=== PATIENT | female | born 1990 | race American Indian/Alaskan Native ===

== ENCOUNTER 2021-10-26 02:45 | Observation (INO) | payer OTHER ==
[2021-10-26] MEDS: ASPIRIN 325 MG TAB PO ONE ×2 (03:10→07:23)
--- NOTE | 2021-10-26 03:30 | XRay Report ---
CHEST 1 VIEW INDICATION / CLINICAL INFORMATION: CHEST PAIN. COMPARISON: None available. FINDINGS: SUPPORT DEVICES: None. HEART / MEDIASTINUM: No significant abnormality. LUNGS / PLEURA: The lungs are clear. No pneumothorax. BONES: No significant osseous abnormality. ADDITIONAL FINDINGS: No significant additional findings. IMPRESSION: 1. No active cardiopulmonary disease. Signer Name: Cali Ferrara II, MD Signed: 10/26/2021 3:25 AM Workstation Name: [id number]
[2021-10-26 03:53] LABS: Basophils % (Auto) 0.2 % (0.0-1.8); Eosinophils % (Auto) 0.1 % (0.0-4.3); Hematocrit 28.8 % (30.3-42.9); Hemoglobin 8.9 gm/dl (10.1-14.3); Lymphocytes # (Auto) 0.5 K/mm3 (1.2-5.4); Lymphocytes % (Auto) 10.2 % (13.4-35.0); Mean Corpuscular HGB Conc 31 % (30-34); Mean Corpuscular Volume 79 fl (79-97); Monocytes # (Auto) 0.4 K/mm3 (0.0-0.8); Monocytes % (Auto) 8.5 % (0.0-7.3); Platelet Count 236 K/mm3 (140-440); Red Blood Count 3.67 M/mm3 (3.65-5.03); Red Cell Distribution Width 15.8 % (13.2-15.2)
[2021-10-26 04:14] LABS: Alanine Aminotransferase 25 units/L (7-56); Albumin 3.7 g/dL (3.9-5); Blood Urea Nitrogen 7 mg/dL (7-17); Calcium 8.4 mg/dL (8.4-10.2); Hemolysis Index 5
[2021-10-26 04:20] LABS: BUN/Creatinine Ratio 10
[2021-10-26] MEDS: MORPHINE 4 MG/1 ML INJ IV ONE ×2 (04:54→07:23)
--- NOTE | 2021-10-26 05:38 | Cat Scan Report ---
CTA CHEST WITH CONTRAST INDICATION / CLINICAL INFORMATION: Increasing chest pain x 1 day. possible P.E.. TECHNIQUE: Axial CT images were obtained through the chest after injection of 100 cc Omnipaque 350 IV contrast. 3 plane MIP and/or 3D reconstructions were produced. All CT scans at this location are per formed using CT dose reduction for ALARA by means of automated exposure control. COMPARISON: Chest x-ray same date FINDINGS: VASCULAR FINDINGS: PULMONARY ARTERY: Pulmonary artery is normal in size. No filling defects are present compatible with pulmonary artery embolus.. THORACIC AORTA: No significant abnormality. CORONARY ARTERY CALCIFICATION: Absent -- None. NONVASCULAR FINDINGS: LOWER NECK:Soft tissues of the lower neck and thyroid demonstrate no significant abnormalities or acu te findings. HEART: No significant abnormality. MEDIASTINUM / MICAELA: No significant abnormality. ESOPHAGUS: Nonspecific mild circumferential wall thickening of the lower esophagus is demonstrated th at may reflect sequelae of reflux/esophagitis. LYMPH NODES: Borderline right hilar lymph nodes. Borderline to minimally enlarged bilateral axillary lymph nodes. LUNGS: Mild dependent atelectasis of the lower lobes. Lungs otherwise clear. PLEURA: No pleural effusion. No pneumothorax. THORACIC SOFT TISSUES: No significant abnormality of the chest wall or upper thoracic musculature. BONES: No significant skeletal abnormalities. ADDITIONAL CHEST FINDINGS: None. UPPER ABDOMEN: No significant abnormality. IMPRESSION: 1. No CT evidence for pulmonary embolism. 2. No acute findings. Signer Name: Cali Ferrara II, MD Signed: 10/26/2021 5:34 AM Workstation Name: [id number]
[2021-10-26] MEDS ORDERED: KETOROLAC 30 MG/1 ML INJ IV ONE ×2 (06:17)
--- NOTE | 2021-10-26 06:28 | Emergency Department Report ---
ED Chest Pain HPI - General Chief Complaint: Chest Pain Stated Complaint: CHEST PAIN Time Seen by Provider: 10/26/21 04:17 Source: patient Mode of arrival: Ambulatory Limitations: No Limitations - History of Present Illness MD Complaint: chest pain -: Sudden (Awaken her from sleep this morning) Onset: awoke with symptoms Pain Location: substernal Severity scale (0 -10): 7 Quality: sharp Worsens With: inspiration re: denies: nausea, vomting, diaphoresis Other Symptoms: denies: cough, fever Treatments Prior to Arrival: aspirin (The patient was given aspirin on arrival to the emergency department) - Related Data Allergies Allergy/AdvReac Type Severity Reaction Status Date / Time No Known Allergies Allergy Verified 10/26/21 03:04 Heart Score - HEART Score History: Slightly suspicious Risk factors: No known risk factors Troponin: < normal limit ED Review of Systems ROS: Stated complaint: CHEST PAIN Other details as noted in HPI Constitutional: denies: chills, fever Eyes: denies: eye pain, eye discharge, vision change ENT: denies: ear pain, throat pain Respiratory: denies: cough, shortness of breath, wheezing Cardiovascular: chest pain. denies: palpitations, edema Endocrine: no symptoms reported Gastrointestinal: denies: abdominal pain, nausea, diarrhea Genitourinary: denies: urgency, dysuria, discharge Musculoskeletal: denies: back pain, joint swelling, arthralgia Skin: denies: rash, lesions Neurological: denies: headache, weakness, paresthesias Psychiatric: denies: anxiety, depression Hematological/Lymphatic: denies: easy bleeding, easy bruising ED Physical Exam - General Limitations: No Limitations General appearance: alert, in distress (Secondary to the chest pain) - Head Head exam: Present: atraumatic, normocephalic - Eye Eye exam: Present: normal appearance, PERRL, EOMI - ENT ENT exam: Present: mucous membranes moist - Neck Neck exam: Present: normal inspection - Respiratory Respiratory exam: Present: normal lung sounds bilaterally. Absent: respiratory distress - Cardiovascular Cardiovascular Exam: Present: regular rate, normal rhythm. Absent: systolic murmur, diastolic murmur, rubs, gallop - GI/Abdominal GI/Abdominal exam: Present: soft. Absent: distended, tenderness, guarding - Rectal Rectal exam: Present: deferred - Extremities Exam Extremities exam: Present: normal inspection, full ROM. Absent: tenderness - Back Exam Back exam: Present: normal inspection, full ROM. Absent: tenderness - Neurological Exam Neurological exam: Present: alert, oriented X3 - Psychiatric Psychiatric exam: Present: normal affect, normal mood ED Course Vital Signs 10/26/21 02:47 Temperature 99.6 F Pulse Rate 119 H Respiratory 20 Rate Blood Pressure 115/61 O2 Sat by Pulse 98 Oximetry ED Medical Decision Making - Lab Data Result diagrams: 10/26/21 03:38 10/26/21 03:38 Labs reviewed the initial cardiac enzymes were negative. There is evidence of mild anemia - EKG Data -: EKG Interpreted by Nd EKG shows normal: sinus rhythm, axis (Normal), intervals (Normal), QRS complexes (Normal), ST-T waves (Diffuse ST segment elevation) Rate: tachycardia - EKG Data Interpretation: pericarditis (Suspect) - Radiology Data Radiology results: report reviewed, image reviewed I reviewed the chest x-ray and the CT scan of the chest as well as the radiologist interpretation. And there is no evidence of pneumonia on his chest x-ray or PE on the CT scan. - Medical Decision Making The patient's pain appears to be quite severe and not reproducible on palpation of the chest wall. Her EKG showed diffuse ST segment elevation with more consistent with pericarditis. The patient was initially given morphine for pain and then this was followed by Toradol. The current plan is to admit the patient for the slp teacher to evaluate. The hospitalist will be called. Critical care attestation.: If time is entered above; I have spent that time in minutes in the direct care of this critically ill patient, excluding procedure time. ED Disposition Clinical Impression: Chest pain Qualifiers: Chest pain type: other chest pain Qualified Code(s): R07.89 - Other chest pain; R07.8 - Other chest pain Pericarditis Qualifiers: Pericarditis type: unspecified type Condition: Stable Instructions: Nonspecific Chest Pain, Adult
--- NOTE | 2021-10-26 08:31 | History and Physical Report ---
History of Present Illness Date of examination: 10/26/21 Date of admission: 10/26/21 Chief complaint: CP History of present illness: 31-year-old female with no significant past medical history reportedly awakened from sleep this morning complaining of chest pain. Patient denies any prior cardiac history. No associated symptoms of shortness of breath, nausea or vomi ting. No diaphoresis. No fever chills. The patient's pain does not reproducible on palpation. Work-up in the emergency room reveals EKG with diffusely elevated ST-T wave changes. Past History Past Medical History: No medical history Past Surgical History: No surgical history Social history: no significant social history Family history: no significant family history Medications and Allergies Allergies Allergy/AdvReac Type Severity Reaction Status Date / Time No Known Allergies Allergy Verified 10/26/21 03:04 Review of Systems All systems: negative Exam - Constitutional Vitals: Temp Pulse Resp BP Pulse Ox 99.6 F 119 H 20 115/61 98 10/26/21 02:47 10/26/21 02:47 10/26/21 02:47 10/26/21 02:47 10/26/21 02:47 General appearance: Present: no acute distress, well-nourished - EENT Eyes: Present: PERRL ENT: hearing intact, clear oral mucosa - Neck Neck: Present: supple, normal ROM - Respiratory Respiratory effort: normal Respiratory: bilateral: CTA - Cardiovascular Heart Sounds: Present: S1 & S2. Absent: rub, click - Extremities Extremities: pulses symmetrical, No edema Peripheral Pulses: within normal limits - Abdominal General gastrointestinal: Present: soft, non-tender, non-distended, normal bowel sounds Female genitourinary: Present: normal - Integumentary Integumentary: Present: clear, warm, dry - Musculoskeletal Musculoskeletal: gait normal, strength equal bilaterally - Psychiatric Psychiatric: appropriate mood/affect, intact judgment & insight - Neurologic Neurologic: CNII-XII intact, moves all extremities HEART Score - HEART Score Risk factors: No known risk factors Troponin: Troponin T < 0.010 ng/mL (0.00-0.029) 10/26/21 05:25 Troponin: < normal limit Results - Labs CBC & Chem 7: 10/26/21 03:38 10/26/21 03:38 Labs: Laboratory Last Values WBC 5.0 K/mm3 (4.5-11.0) 10/26/21 03:38 RBC 3.67 M/mm3 (3.65-5.03) 10/26/21 03:38 Hgb 8.9 gm/dl (10.1-14.3) L 10/26/21 03:38 Hct 28.8 % (30.3-42.9) L 10/26/21 03:38 MCV 79 fl (79-97) 10/26/21 03:38 MCH 24 pg (28-32) L 10/26/21 03:38 MCHC 31 % (30-34) 10/26/21 03:38 RDW 15.8 % (13.2-15.2) H 10/26/21 03:38 Plt Count 236 K/mm3 (140-440) 10/26/21 03:38 Lymph % (Auto) 10.2 % (13.4-35.0) L 10/26/21 03:38 [place] % (Auto) 8.5 % (0.0-7.3) H 10/26/21 03:38 Eos % (Auto) 0.1 % (0.0-4.3) 10/26/21 03:38 Baso % (Auto) 0.2 % (0.0-1.8) 10/26/21 03:38 Lymph # (Auto) 0.5 K/mm3 (1.2-5.4) L 10/26/21 03:38 [place] # (Auto) 0.4 K/mm3 (0.0-0.8) 10/26/21 03:38 Eos # (Auto) 0.0 K/mm3 (0.0-0.4) 10/26/21 03:38 Baso # (Auto) 0.0 K/mm3 (0.0-0.1) 10/26/21 03:38 Seg Neutrophils % 81.0 % (40.0-70.0) H 10/26/21 03:38 Seg Neutrophils # 4.0 K/mm3 (1.8-7.7) 10/26/21 03:38 D-Dimer 2036.48 ng/mlDDU (0-234) H 10/26/21 05:25 Sodium 133 mmol/L (137-145) L 10/26/21 03:38 Potassium 3.6 mmol/L (3.6-5.0) 10/26/21 03:38 Chloride 99.6 mmol/L (98-107) 10/26/21 03:38 Carbon Dioxide 22 mmol/L (22-30) 10/26/21 03:38 Anion Gap 15 mmol/L 10/26/21 03:38 BUN 7 mg/dL (7-17) 10/26/21 03:38 Creatinine 0.7 mg/dL (0.6-1.2) 10/26/21 03:38 Estimated GFR > 60 ml/min 10/26/21 03:38 BUN/Creatinine Ratio 10 % 10/26/21 03:38 Glucose 91 mg/dL (65-100) 10/26/21 03:38 Calcium 8.4 mg/dL (8.4-10.2) 10/26/21 03:38 Total Bilirubin 0.40 mg/dL (0.1-1.2) 10/26/21 03:38 AST 31 units/L (5-40) 10/26/21 03:38 ALT 25 units/L (7-56) 10/26/21 03:38 Alkaline Phosphatase 49 units/L (35-129) 10/26/21 03:38 Troponin T < 0.010 ng/mL (0.00-0.029) 10/26/21 05:25 Total Protein 7.7 g/dL (6.3-8.2) 10/26/21 03:38 Albumin 3.7 g/dL (3.9-5) L 10/26/21 03:38 Albumin/Globulin Ratio 0.9 % 10/26/21 03:38 Assessment and Plan Assessment and plan: Acute pericarditis. Abnormal EKG 10/26/2021. The patient will be admitted and we will continue to follow cardiac isoenzymes. Patient received Toradol in the emergency department. Consult cardiology. Initiate anti-inflammatory medications. Check echocardiogram
[2021-10-26] MEDS ORDERED: ACETAMINOPHEN 325 MG TAB PO PRN ×2 (08:32→09:00)
[2021-10-26] MEDS ORDERED: traMADol 50 MG TAB PO PRN (09:00)
[2021-10-26] MEDS ORDERED: ONDANSETRON 4 MG/2 ML INJ IV PRN (09:00)
[2021-10-26] MEDS ORDERED: SODIUM CHLORIDE 0.9% 1000 ML 1,000 ML IV SCH (09:00)
[2021-10-26 10:25] LABS: Basophils % (Auto) 0.4 % (0.0-1.8); Hematocrit 30.7 % (30.3-42.9); Hemoglobin 9.6 gm/dl (10.1-14.3); Lymphocytes # (Auto) 0.5 K/mm3 (1.2-5.4); Lymphocytes % (Auto) 7.6 % (13.4-35.0); Mean Corpuscular HGB Conc 31 % (30-34); Mean Corpuscular Volume 79 fl (79-97); Monocytes # (Auto) 0.5 K/mm3 (0.0-0.8); Monocytes % (Auto) 7.8 % (0.0-7.3); Platelet Count 261 K/mm3 (140-440); Red Cell Distribution Width 16.3 % (13.2-15.2)
[2021-10-26] MEDS: MORPHINE 4 MG/1 ML INJ IV PRN ×2 (10:38→15:50)
[2021-10-26 10:45] LABS: Blood Urea Nitrogen 7 mg/dL (7-17); Calcium 8.8 mg/dL (8.4-10.2); Hemolysis Index 21
[2021-10-26 10:50] LABS: BUN/Creatinine Ratio 12
[2021-10-26] MEDS ORDERED: SODIUM CHLORIDE 0.9% 250ML 250 ML IV ONE (12:00)
[2021-10-26] MEDS ORDERED: SODIUM CHLORIDE 0.9% 500 ML 500 ML ONE (12:06)
--- NOTE | 2021-10-26 13:07 | Vascular Lab Report ---
DUPLEX DOPPLER LOWER EXTREMITY VEINS, BILATERAL INDICATION: rule out PE. Shortness of breath, chest pain TECHNIQUE: Duplex doppler imaging was performed through the veins of both lower extremities using ve nous compression and other maneuvers. COMPARISON: No relevant prior imaging study available. FINDINGS: Right Common femoral vein: Negative. Right Superficial femoral vein: Negative. Right Popliteal vein: Negative. Right Calf veins: Negative. Left Common femoral vein: Negative. Left Superficial femoral vein: Negative. Left Popliteal vein: Negative. Left Calf veins: Negative. Additional findings: None. IMPRESSION: No sonographic evidence for DVT in either lower extremity. Signer Name: Kaveh Buck Jr, MD Signed: 10/26/2021 1:03 PM Workstation Name: [id number]
[2021-10-26] MEDS: HYDROcodone/ACETAMINOPHEN 5-325 MG TAB PO PRN ×2 (13:41→21:43)
--- NOTE | 2021-10-26 13:42 | Consultation ---
History of Present Illness Consult date: 10/26/21 Requesting physician: EVGENY LÓPEZ Consult reason: other (Pericarditis) History of present illness: Patient 31-year-old female with no past medical history who came to the ED for complaint of chest pain which started last night. Patient reports sudden onset of a chest tightness associated with palpitations that was worse with deep breathing and when lying flat. She reports the pain is relieved when sitting up or walking around. Furthermore patient also reports some lower extremity edema and lightheadedness. She denies nausea, vomiting, diaphoresis. In the ED EKG showed diffuse ST-T wave changes associated with pericarditis. Of note patient denies any recent vaccinations or sickness. Patient is previously known to our practice. Cardiology is consulted for pericarditis Past History Past Medical History: No medical history Past Surgical History: No surgical history Social history: no significant social history Family history: no significant family history Medications and Allergies Allergies Allergy/AdvReac Type Severity Reaction Status Date / Time No Known Allergies Allergy Verified 10/26/21 03:04 Active Meds: Active Medications Acetaminophen (Acetaminophen 325 Mg Tab) 650 mg PO Q4H PRN PRN Reason: Pain MILD(1-3)/Fever >100.5/RILEY Hydrocodone Bitart/Acetaminophen (Hydrocodone/Acetaminophen 5-325 Mg Tab) 2 each PO Q6H PRN PRN Reason: Pain, Moderate (4-6) Heparin Sodium (Porcine) (Heparin 5,000 Unit/1 Ml Vial) 5,000 unit SUB-Q Q8HR PRAKASH Sodium Chloride (Nacl 0.9% 1000 Ml) 1,000 mls @ 75 mls/hr IV DIRECT PRAKASH Morphine Sulfate (Morphine 4 Mg/1 Ml Inj) 2 mg IV Q4H PRN PRN Reason: Pain , Severe (7-10) Last Admin: 10/26/21 10:38 Dose: 2 mg Ondansetron HCl (Ondansetron 4 Mg/2 Ml Inj) 4 mg IV Q8H PRN PRN Reason: Nausea And Vomiting Last Admin: 10/26/21 10:38 Dose: 4 mg Sodium Chloride (Sodium Chloride 0.9% 10 Ml Flush Syringe) 10 ml IV BID PRAKASH Last Admin: 10/26/21 10:38 Dose: 10 ml Sodium Chloride (Sodium Chloride 0.9% 10 Ml Flush Syringe) 10 ml IV PRN PRN PRN Reason: LINE FLUSH Sodium Chloride (Sodium Chloride 0.9% 10 Ml Flush Syringe) 10 ml IV PRN PRN PRN Reason: LINE FLUSH Tramadol HCl (Tramadol 50 Mg Tab) 50 mg PO Q6H PRN PRN Reason: Pain, Moderate (4-6) Review of Systems Constitutional: no weight loss, no weight gain, no fever, no chills Ears, nose, mouth and throat: no nasal discharge, no sinus pressure, no sinus pain Cardiovascular: chest pain, palpitations, rapid/irregular heart beat, shortness of breath, leg edema Respiratory: shortness of breath, pain on inspiration Gastrointestinal: no abdominal pain, no nausea, no vomiting Musculoskeletal: no neck pain, no shooting arm pain, no arm numbness/tingling Integumentary: no rash, no pruritis, no redness Neurological: no head injury, no transient paralysis Psychiatric: no anxiety, no memory loss Endocrine: no cold intolerance, no heat intolerance Physical Examination Vital Signs Temp Pulse Resp BP Pulse Ox 99.6 F 119 H 20 115/61 98 10/26/21 02:47 10/26/21 02:47 10/26/21 02:47 10/26/21 02:47 10/26/21 02:47 General appearance: no acute distress Cardiac: Positive: Regular Rhythm, Tachycardia Lungs: Positive: Normal Breath Sounds Neuro: Positive: Grossly Intact Abdomen: Positive: Soft, Active Bowel Sounds Skin: Negative: Rash, Suspicious Lesions, Ulceration Extremities: Present: upper extr. pulses, edema Results 10/26/21 09:56 10/26/21 09:56 Cardiac Enzymes 10/26/21 Range/Units 03:38 AST 31 (5-40) units/L CBC 10/26/21 10/26/21 Range/Units 03:38 09:56 WBC 5.0 6.3 (4.5-11.0) K/mm3 RBC 3.67 3.90 (3.65-5.03) M/mm3 Hgb 8.9 L 9.6 L (10.1-14.3) gm/dl Hct 28.8 L 30.7 (30.3-42.9) % Plt Count 236 261 (140-440) K/mm3 Lymph # (Auto) 0.5 L 0.5 L (1.2-5.4) K/mm3 [place] # (Auto) 0.4 0.5 (0.0-0.8) K/mm3 Eos # (Auto) 0.0 0.0 (0.0-0.4) K/mm3 Baso # (Auto) 0.0 0.0 (0.0-0.1) K/mm3 Comprehensive Metabolic Panel 10/26/21 10/26/21 Range/Units 03:38 09:56 Sodium 133 L 134 L (137-145) mmol/L Potassium 3.6 3.8 (3.6-5.0) mmol/L Chloride 99.6 100.0 (98-107) mmol/L Carbon Dioxide 22 21 L (22-30) mmol/L BUN 7 7 (7-17) mg/dL Creatinine 0.7 0.6 (0.6-1.2) mg/dL Glucose 91 82 (65-100) mg/dL Calcium 8.4 8.8 (8.4-10.2) mg/dL AST 31 (5-40) units/L ALT 25 (7-56) units/L Alkaline Phosphatase 49 (35-129) units/L Total Protein 7.7 (6.3-8.2) g/dL Albumin 3.7 L (3.9-5) g/dL - Imaging and Cardiology Echo: pending EKG interpretations - Telemetry EKG Rhythm: Sinus Tachycardia - EKG Sinus rhythms and dysrhythmias: sinus tachycardia Repolarization changes or abnormalities: nonspecific abnormality, ST segment, and/or T wave Assessment and Plan Patient 31-year-old female with no past medical history who came to the ED for complaint of chest pain which started the night prior to admission Pericarditis? Sinus tach Anemia Elevated D-dimer-CT negative for PE/Doppler rule out no DVT Plan: EKG shows sinus tach [address] elevation suggestive of acute pericarditis. Troponins negative x3. Patient currently chest pain-free. AMI ruled out Echo pending Stress test canceled due to patient currently sinus tach rate trending 130s Patient reported decrease of appetite for the last couple of days. Patient may be dehydrated will initiate IV fluid bolus and rehydration with IVF D-dimer noted to be elevated Doppler ruled out DVT Recommend monitoring overnight Patient conjunction with Dr. Masterson who agrees with this plan of care - Patient Problems (1) Anemia Current Visit: Yes Status: Acute (2) Elevated d-dimer Current Visit: Yes Status: Acute (3) Pericarditis Current Visit: Yes Status: Acute Qualifiers: Pericarditis type: unspecified type
[2021-10-26] MEDS: HEPARIN 5,000 UNIT/1 ML VIAL SUB-Q SCH ×2 (15:50→21:42)
--- NOTE | 2021-10-26 18:07 | Electrocardiograph Report ---
[facility] Test Date: 2021-10-26 Test Time: 02:54:18 Pat Name: RIVKA NGUYEN Department: Room: A451 1 Gender: F Fern Picker: HENRY : [id number] Requested By: MACHELLE ROJAS Order Number: [id number] Reading MD: Tayler Alvarado Measurements Intervals [place] Rate: 103 P: 49 MO: 145 QRS: 60 QRSD: 80 T: 45 QT: 325 QTc: 427 Interpretive Statements Sinus tachycardia Nonspecific J-point elevation, consider early repolarization versus pericarditis No previous ECG available for comparison Electronically Signed On 10-26-2021 18:06:37 EDT by Tayler Alvarado
[2021-10-27] MEDS: MORPHINE 4 MG/1 ML INJ IV PRN ×4 (04:31→22:56)
[2021-10-27 04:56] LABS: Basophils % (Auto) 0.2 % (0.0-1.8); Hematocrit 28.3 % (30.3-42.9); Hemoglobin 8.7 gm/dl (10.1-14.3); Lymphocytes # (Auto) 0.9 K/mm3 (1.2-5.4); Lymphocytes % (Auto) 11.6 % (13.4-35.0); Mean Corpuscular HGB Conc 31 % (30-34); Mean Corpuscular Volume 79 fl (79-97); Monocytes # (Auto) 0.8 K/mm3 (0.0-0.8); Monocytes % (Auto) 10.4 % (0.0-7.3); Platelet Count 240 K/mm3 (140-440); Red Blood Count 3.59 M/mm3 (3.65-5.03); Red Cell Distribution Width 16.2 % (13.2-15.2)
[2021-10-27 05:13] LABS: BUN/Creatinine Ratio 13; Blood Urea Nitrogen 8 mg/dL (7-17); Calcium 8.3 mg/dL (8.4-10.2); Hemolysis Index 2
[2021-10-27] MEDS: HEPARIN 5,000 UNIT/1 ML VIAL SUB-Q SCH ×3 (05:25→21:27)
--- NOTE | 2021-10-27 09:56 | Progress Note ---
Assessment and Plan This is a very pleasant 31-year-old -[place] female: 1. Acute pericarditis of unclear etiology * Echo reveals only a small pericardial effusion. Normal otherwise. * Initiate indomethacin therapy * Continue IV fluids * Suspect some infectious/inflammatory process * Patient has not received a recent vaccine or booster 2. Chronic anemia * Primary care used to be at [place] and patient was receiving IV iron infusions * This needs to be further worked up per primary We will watch overnight. Continue IV fluids and indomethacin. Ambulate. Anticipate a.m. discharge. I had a long discussion with the patient today regarding our findings and plan of care. - Patient Problems (1) Anemia Current Visit: Yes Status: Acute (2) Pericarditis Current Visit: Yes Status: Acute Qualifiers: Pericarditis type: unspecified type Subjective Date of service: 10/27/21 Interval history: Patient feels much better this morning. Just tired. No chest pain. Objective Vital Signs Temp Pulse Resp BP BP Pulse Ox 10/27/21 07:44 98.6 F 104 H 18 109/58 95 10/27/21 04:25 100.7 F H 122 H 18 111/68 94 10/26/21 23:29 100.6 F H 127 H 18 105/48 91 10/26/21 23:00 129 H 10/26/21 20:14 99 10/26/21 19:47 99.7 F H 115 H 18 109/61 97 10/26/21 17:03 99.2 F 109 H 18 110/61 94 10/26/21 14:46 124 H 26 H 103/51 95 - Physical Examination Neuro: Positive: Grossly Intact Abdomen: Positive: Soft, Active Bowel Sounds Skin: Negative: Rash, Suspicious Lesions, Ulceration Extremities: Present: upper extr. pulses, edema - Labs and Meds CBC 10/26/21 10/27/21 Range/Units 09:56 04:14 WBC 6.3 8.1 (4.5-11.0) K/mm3 RBC 3.90 3.59 L (3.65-5.03) M/mm3 Hgb 9.6 L 8.7 L (10.1-14.3) gm/dl Hct 30.7 28.3 L (30.3-42.9) % Plt Count 261 240 (140-440) K/mm3 Lymph # (Auto) 0.5 L 0.9 L (1.2-5.4) K/mm3 [place] # (Auto) 0.5 0.8 (0.0-0.8) K/mm3 Eos # (Auto) 0.0 0.0 (0.0-0.4) K/mm3 Baso # (Auto) 0.0 0.0 (0.0-0.1) K/mm3 Comprehensive Metabolic Panel 10/26/21 10/27/21 Range/Units 09:56 04:14 Sodium 134 L 134 L (137-145) mmol/L Potassium 3.8 3.7 (3.6-5.0) mmol/L Chloride 100.0 100.6 (98-107) mmol/L Carbon Dioxide 21 L 20 L (22-30) mmol/L BUN 7 8 (7-17) mg/dL Creatinine 0.6 0.6 (0.6-1.2) mg/dL Glucose 82 70 (65-100) mg/dL Calcium 8.8 8.3 L (8.4-10.2) mg/dL - Imaging and Cardiology Echo: pending - EKG Sinus rhythms and dysrhythmias: sinus tachycardia Repolarization changes or abnormalities: nonspecific abnormality, ST segment, and/or T wave
--- NOTE | 2021-10-27 11:11 | Progress Note ---
Assessment and Plan Assessment and plan: Acute pericarditis. Sepsis. The patient meets criteria given the fever, tachycardia and diagnosis of pericarditis. Abnormal EKG 10/26/2021. The patient will be admitted and we will continue to follow cardiac isoenzymes. Patient received Toradol in the emergency department. Consult cardiology. Initiate anti-inflammatory medications. Check echocardiogram 10/27/2021. Echocardiogram reveals only small pericardial effusion. Continue indomethacin per cardiology recommendations. Continue IV fluid hydration. Patient does exhibit signs of infectious etiology with low-grade temp of 100.6. We will consult ID for further evaluation. Check blood cultures x2. Start empiric antibiotics of Rocephin 1 g IV every 24 hours. History Interval history: No new issues overnight. Hospitalist Physical - Constitutional Vitals: Temp Pulse Resp BP Pulse Ox 98.6 F 104 H 18 109/58 95 10/27/21 07:44 10/27/21 07:44 10/27/21 07:44 10/27/21 07:44 10/27/21 07:44 General appearance: Present: no acute distress - EENT Eyes: Present: PERRL, EOM intact ENT: hearing intact, clear oral mucosa, dentition normal - Neck Neck: Present: supple, normal ROM - Respiratory Respiratory effort: normal Respiratory: bilateral: CTA - Cardiovascular Rhythm: regular Heart Sounds: Present: S1 & S2. Absent: gallop, rub - Extremities Extremities: no ischemia, No edema, Full ROM - Abdominal General gastrointestinal: soft, non-tender, non-distended, normal bowel sounds - Integumentary Integumentary: Present: clear, warm, dry - Neurologic Neurologic: CNII-XII intact, moves all extremities HEART Score - HEART Score Risk factors: No known risk factors Troponin: Troponin T < 0.010 ng/mL (0.00-0.029) 10/26/21 09:56 Troponin: < normal limit Results - Labs CBC & Chem 7: 10/27/21 04:14 10/27/21 04:14 Labs: Laboratory Last Values WBC 8.1 K/mm3 (4.5-11.0) 10/27/21 04:14 RBC 3.59 M/mm3 (3.65-5.03) L 10/27/21 04:14 Hgb 8.7 gm/dl (10.1-14.3) L 10/27/21 04:14 Hct 28.3 % (30.3-42.9) L 10/27/21 04:14 MCV 79 fl (79-97) 10/27/21 04:14 MCH 24 pg (28-32) L 10/27/21 04:14 MCHC 31 % (30-34) 10/27/21 04:14 RDW 16.2 % (13.2-15.2) H 10/27/21 04:14 Plt Count 240 K/mm3 (140-440) 10/27/21 04:14 Lymph % (Auto) 11.6 % (13.4-35.0) L 10/27/21 04:14 [place] % (Auto) 10.4 % (0.0-7.3) H 10/27/21 04:14 Eos % (Auto) 0.0 % (0.0-4.3) 10/27/21 04:14 Baso % (Auto) 0.2 % (0.0-1.8) 10/27/21 04:14 Lymph # (Auto) 0.9 K/mm3 (1.2-5.4) L 10/27/21 04:14 [place] # (Auto) 0.8 K/mm3 (0.0-0.8) 10/27/21 04:14 Eos # (Auto) 0.0 K/mm3 (0.0-0.4) 10/27/21 04:14 Baso # (Auto) 0.0 K/mm3 (0.0-0.1) 10/27/21 04:14 Seg Neutrophils % 77.8 % (40.0-70.0) H 10/27/21 04:14 Seg Neutrophils # 6.3 K/mm3 (1.8-7.7) 10/27/21 04:14 D-Dimer 2036.48 ng/mlDDU (0-234) H 10/26/21 05:25 Sodium 134 mmol/L (137-145) L 10/27/21 04:14 Potassium 3.7 mmol/L (3.6-5.0) 10/27/21 04:14 Chloride 100.6 mmol/L (98-107) 10/27/21 04:14 Carbon Dioxide 20 mmol/L (22-30) L 10/27/21 04:14 Anion Gap 17 mmol/L 10/27/21 04:14 BUN 8 mg/dL (7-17) 10/27/21 04:14 Creatinine 0.6 mg/dL (0.6-1.2) 10/27/21 04:14 Estimated GFR > 60 ml/min 10/27/21 04:14 BUN/Creatinine Ratio 13 % 10/27/21 04:14 Glucose 70 mg/dL (65-100) 10/27/21 04:14 Calcium 8.3 mg/dL (8.4-10.2) L 10/27/21 04:14 Total Bilirubin 0.40 mg/dL (0.1-1.2) 10/26/21 03:38 AST 31 units/L (5-40) 10/26/21 03:38 ALT 25 units/L (7-56) 10/26/21 03:38 Alkaline Phosphatase 49 units/L (35-129) 10/26/21 03:38 Troponin T < 0.010 ng/mL (0.00-0.029) 10/26/21 09:56 Total Protein 7.7 g/dL (6.3-8.2) 10/26/21 03:38 Albumin 3.7 g/dL (3.9-5) L 10/26/21 03:38 Albumin/Globulin Ratio 0.9 % 10/26/21 03:38 [place]/IV: Voiding Method Toilet Active Medications - Current Medications Current Medications: Generic Name Dose Route Start Last Admin Trade Name Freq PRN Reason Stop Dose Admin Acetaminophen 650 mg 10/26/21 09:00 10/27/21 04:31 Acetaminophen 325 Mg Tab PO 650 mg Q4H PRN Administration Pain MILD(1-3)/Fever >100.5/RILEY Hydrocodone Bitart/Acetaminophen 2 each 10/26/21 09:00 10/26/21 21:43 Hydrocodone/Acetaminophen 5-325 Mg Tab PO 2 each Q6H PRN Administration Pain, Moderate (4-6) Heparin Sodium (Porcine) 5,000 unit 10/26/21 14:00 10/27/21 05:25 Heparin 5,000 Unit/1 Ml Vial SUB-Q 5,000 unit Q8HR PRAKASH Administration Sodium Chloride 1,000 mls @ 75 mls/hr 10/26/21 09:00 10/26/21 15:51 Nacl 0.9% 1000 Ml IV 75 mls/hr DIRECT PRAKASH Administration Indomethacin 25 mg 10/27/21 11:00 Indomethacin 25 Mg Cap PO Q8HR PRAKASH Morphine Sulfate 2 mg 10/26/21 09:00 10/27/21 04:31 Morphine 4 Mg/1 Ml Inj IV 2 mg Q4H PRN Administration Pain , Severe (7-10) Ondansetron HCl 4 mg 10/26/21 09:00 10/26/21 10:38 Ondansetron 4 Mg/2 Ml Inj IV 4 mg Q8H PRN Administration Nausea And Vomiting Sodium Chloride 10 ml 10/26/21 10:00 10/27/21 10:19 Sodium Chloride 0.9% 10 Ml Flush Syringe IV 10 ml BID PRAKASH Administration Sodium Chloride 10 ml 10/26/21 09:00 Sodium Chloride 0.9% 10 Ml Flush Syringe IV PRN PRN LINE FLUSH Sodium Chloride 10 ml 10/26/21 08:32 Sodium Chloride 0.9% 10 Ml Flush Syringe IV PRN PRN LINE FLUSH Tramadol HCl 50 mg 10/26/21 09:00 Tramadol 50 Mg Tab PO Q6H PRN Pain, Moderate (4-6)
[2021-10-27] MEDS: cefTRIAXone/NS 1 GM/50 ML 1 GM/50 ML BAG IV SCH (11:24)
[2021-10-27] MEDS: INDOMETHACIN 25 MG CAP PO SCH ×2 (11:24→21:27)
[2021-10-28] MEDS: MORPHINE 4 MG/1 ML INJ IV PRN (04:37)
[2021-10-28 06:43] LABS: Blood Urea Nitrogen 8 mg/dL (7-17); Calcium 7.8 mg/dL (8.4-10.2); Hemolysis Index 0
[2021-10-28 06:45] LABS: Basophils % (Auto) 0.2 % (0.0-1.8); Eosinophils % (Auto) 0.4 % (0.0-4.3); Hematocrit 24.4 % (30.3-42.9); Hemoglobin 7.7 gm/dl (10.1-14.3); Lymphocytes # (Auto) 0.3 K/mm3 (1.2-5.4); Mean Corpuscular HGB Conc 32 % (30-34); Mean Corpuscular Volume 78 fl (79-97); Monocytes # (Auto) 0.4 K/mm3 (0.0-0.8); Monocytes % (Auto) 9.2 % (0.0-7.3); Platelet Count 258 K/mm3 (140-440); Red Blood Count 3.13 M/mm3 (3.65-5.03); Red Cell Distribution Width 16.1 % (13.2-15.2)
[2021-10-28] MEDS: INDOMETHACIN 25 MG CAP PO SCH (06:46)
[2021-10-28] MEDS: HEPARIN 5,000 UNIT/1 ML VIAL SUB-Q SCH (06:46)
[2021-10-28 06:58] LABS: BUN/Creatinine Ratio 16
[2021-10-28] MEDS: HYDROcodone/ACETAMINOPHEN 5-325 MG TAB PO PRN ×2 (10:37→11:08)
--- NOTE | 2021-10-28 10:59 | Progress Note ---
Assessment and Plan This is a very pleasant 31-year-old -[place] female: 1. Acute pericarditis of unclear etiology * Echo reveals only a small pericardial effusion. Normal otherwise. * Continue indomethacin therapy * Suspect some infectious/inflammatory process * Patient has not received a recent vaccine or booster * Telemetry reveals normal sinus rhythm without dysrhythmias or tachycardia. 2. Chronic anemia * Primary care used to be at [place] and patient was receiving IV iron infusions * This needs to be further worked up per primary Clinically doing great. Blood cultures are pending. Will need indomethacin at current dosing for 1 week. Follow-up with me in the office ([phone]) in 2 to 4 weeks. We will repeat an echocardiogram. Discussed with patient at length. We will also need to have her anemia worked up as per hospitalist. - Patient Problems (1) Anemia Current Visit: Yes Status: Acute (2) Pericarditis Current Visit: Yes Status: Acute Qualifiers: Pericarditis type: unspecified type Subjective Interval history: Feels much better and back to normal today. No chest pain. Objective Vital Signs Temp Pulse Resp Resp BP BP Pulse Ox 10/28/21 10:00 99 10/28/21 07:22 97.9 F 87 16 107/56 100 10/28/21 05:07 20 10/28/21 04:37 20 10/28/21 04:04 97.6 F 94 H 18 96/55 97 10/28/21 00:13 98.7 F 98 H 18 107/57 98 10/27/21 23:26 20 10/27/21 22:56 20 10/27/21 20:25 101 H 20 98 10/27/21 20:00 98.7 F 101 H 18 108/64 94 10/27/21 16:44 98.2 F 101 H 18 105/59 96 - Physical Examination Neuro: Positive: Grossly Intact Abdomen: Positive: Soft, Active Bowel Sounds Skin: Negative: Rash, Suspicious Lesions, Ulceration Extremities: Present: upper extr. pulses, edema - Labs and Meds CBC 10/28/21 Range/Units 05:53 WBC 4.5 (4.5-11.0) K/mm3 RBC 3.13 L (3.65-5.03) M/mm3 Hgb 7.7 L (10.1-14.3) gm/dl Hct 24.4 L (30.3-42.9) % Plt Count 258 (140-440) K/mm3 Lymph # (Auto) 0.3 L (1.2-5.4) K/mm3 [place] # (Auto) 0.4 (0.0-0.8) K/mm3 Eos # (Auto) 0.0 (0.0-0.4) K/mm3 Baso # (Auto) 0.0 (0.0-0.1) K/mm3 Comprehensive Metabolic Panel 10/28/21 Range/Units 05:53 Sodium 135 L (137-145) mmol/L Potassium 3.5 L (3.6-5.0) mmol/L Chloride 100.0 (98-107) mmol/L Carbon Dioxide 24 (22-30) mmol/L BUN 8 (7-17) mg/dL Creatinine 0.5 L (0.6-1.2) mg/dL Glucose 84 (65-100) mg/dL Calcium 7.8 L (8.4-10.2) mg/dL - Imaging and Cardiology Echo: pending - EKG Sinus rhythms and dysrhythmias: sinus tachycardia Repolarization changes or abnormalities: nonspecific abnormality, ST segment, and/or T wave
--- NOTE | 2021-10-28 11:37 | Discharge Summary ---
Providers - Providers Date of Admission: 10/26/21 08:33 Date of discharge: 10/28/21 Attending physician: EVGENY LÓPEZ 10/26/21 Consult to Cardiac Rehabilitation [CONS] Routine Reason For Exam: Phase I 10/26/21 06:45 Consult to Cardiology [CONS] Stat Consulting Provider: JASPAL KYLE Reason For Exam: Chest pain possibly pericarditis 10/26/21 08:33 Consult to Cardiology [CONS] Routine Consulting Provider: JASPAL KYLE Reason For Exam: pericarditis 10/27/21 11:11 Consult to Physician [CONS] Routine Comment: Consulting Provider: RENE ZUNIGA Physician Instructions: Reason For Exam: pericarditis Primary care physician: MANAGER ASSEMBLY Hospitalization Reason for admission: cp Condition: Stable Hospital course: 31-year-old female with no significant past medical history reportedly awakened from sleep this morning complaining of chest pain. Work-up in the emergency room reveals EKG with diffusely elevated ST-T wave changes. The patient was admitted with diagnosis of acute pericarditis. Echocardiogram revealed only small pericardial effusion. Patient was treated with indomethacin and IV fluid hydration. Cardiology felt that patient likely had some inflammatory/infectious etiology Rocephin was started empirically. Patient did have a slight temperature spike. I discussed the case with ID who reports that patient likely has viral etiology and no need for antibiotics. Cardiology felt the patient could discharge home and follow-up as an outpatient as well as repeat echocar diogram. Dedicated discharge time 35 minutes Disposition: 01 HOME / SELF CARE / HOMELESS Final Discharge Diagnosis (Prints w/discharge instructions): Acute pericarditis, chronic anemia Core Measure Documentation - Palliative Care Palliative Care/ Comfort Measures: Not Applicable - Core Measures Any of the following diagnoses?: none Exam - Constitutional Vitals: Temp Pulse Resp BP Pulse Ox 97.9 F 87 16 107/56 99 10/28/21 07:22 10/28/21 07:22 10/28/21 07:22 10/28/21 07:22 10/28/21 10:00 General appearance: Present: no acute distress, well-nourished - EENT Eyes: Present: PERRL ENT: hearing intact, clear oral mucosa - Neck Neck: Present: supple, normal ROM - Respiratory Respiratory effort: normal Respiratory: bilateral: CTA - Cardiovascular Heart Sounds: Present: S1 & S2. Absent: rub, click - Extremities Extremities: pulses symmetrical, No edema Peripheral Pulses: within normal limits - Abdominal General gastrointestinal: Present: soft, non-tender, non-distended, normal bowel sounds Female genitourinary: Present: normal - Integumentary Integumentary: Present: clear, warm, dry - Musculoskeletal Musculoskeletal: gait normal, strength equal bilaterally - Psychiatric Psychiatric: appropriate mood/affect, intact judgment & insight - Neurologic Neurologic: CNII-XII intact, moves all extremities Plan Activity: advance as tolerated Weight Bearing Status: Weight Bear as Tolerated Diet: regular Follow up with: PRIMARY CARE, [Primary Care Provider] - 7 Days Prescriptions: Indomethacin [Indocin] 25 mg PO Q8HR #21 capsule
[2021-10-28 12:01] VITALS: BP 104/53
[2021-10-28] MEDS: cefTRIAXone/NS 1 GM/50 ML 1 GM/50 ML BAG IV SCH (12:11)
--- NOTE | 2021-10-28 15:05 | Electrocardiograph Report ---
[facility] Test Date: 2021-10-27 Test Time: 09:05:28 Pat Name: RIVKA NGUYEN Department: Room: A451 1 Gender: F Sanitation Manager: MELBA : 1990 Requested By: MACHELLE ROJAS Order Number: [id number] Reading MD: Carlos Mary Measurements Intervals [place] Rate: 104 P: 16 [place]: 165 QRS: 17 QRSD: 75 T: 50 QT: 321 QTc: 423 Interpretive Statements Sinus tachycardia Nonspecific T abnormalities, anterior leads ST elevation, consider PERICARDITIS Compared to ECG 10/26/2021 02:54:18 T-wave abnormality now present ST (T wave) deviation -WORSE Electronically Signed On 10-28-2021 15:04:56 EDT by Carlos Mary
--- NOTE | 2021-10-28 15:10 | Electrocardiograph Report ---
[facility] Test Date: 2021-10-27 Test Time: 12:34:38 Pat Name: RIVKA NGUYEN Department: Room: A451 1 Gender: F Sous Chef Kitchen Manager: MELBA : 1990 Requested By: EVGENY LÓPEZ Order Number: [id number] Reading MD: Carlos Mary Measurements Intervals [place] Rate: 110 P: 38 [place]: 183 QRS: 32 QRSD: 84 T: -4 QT: 305 QTc: 414 Interpretive Statements Sinus tachycardia ST elevation, consider lateral injury vs PERICARDITIS Compared to ECG 10/27/2021 09:05:28 T-wave abnormality no longer present ST (T wave) deviation still present Electronically Signed On 10-28-2021 15:09:49 EDT by Carlos Mary
--- NOTE | 2021-10-28 15:23 | Electrocardiograph Report ---
[facility] Test Date: 2021-10-28 Test Time: 07:56:37 Pat Name: RIVKA NGUYEN Department: Room: A451 1 Gender: F Director Of Student Services: MELBA : 1990 Requested By: EVGENY LÓPEZ Order Number: [id number] Reading MD: Carlos Mary Measurements Intervals [place] Rate: 89 P: 37 [place]: 167 QRS: 26 QRSD: 91 T: 2 QT: 359 QTc: 438 Interpretive Statements Sinus rhythm ST elevation, consider lateral injury & PERICARDITIS Compared to ECG 10/27/2021 12:34:38 Sinus tachycardia no longer present ST (T wave) deviation still present Electronically Signed On 10-28-2021 15:23:09 EDT by Carlos Mary
== END 2021-10-28 13:55 | disposition home or self-care (01) ==
LOC: ED 02:45 → 4A 08:33
PROVIDERS: ADMIT Hospitalist; ATTEND Hospitalist
DX: A41.9 Sepsis, unspecified organism (principal); I31.9 Disease of pericardium, unspecified; R94.39 Abnormal result of other cardiovascular function study; R07.89 Other chest pain; D64.9 Anemia, unspecified; R77.8 Other specified abnormalities of plasma proteins; R00.0 Tachycardia, unspecified; Z79.899 Other long term (current) drug therapy; Z98.890 Other specified postprocedural states
CPT/HCPCS: 36415; 71045; 71275; 80048; 80053; 84484; 85025; 85379; 87040; 93005; 93970; 96361; 96365; 96366; 96372; 96375; 96376; 99285; C8929; G0378; J0696; J1644; J1885; J2270; J2405; J7030; J7040; J7050; Q9967; 93306; Q0162